=== PATIENT | female | born 1990 | race Two or more races ===

== ENCOUNTER 2016-08-27 08:47 | Emergency (ER) | payer BC ==
[~2016-08-27] VITALS: Ht 165.1 cm; Wt 65.8 kg
[2016-08-27 09:03] VITALS: BP 124/62
== END 2016-08-27 09:17 | disposition home or self-care (01) ==
LOC: ER 08:49
DX: H92.01 Otalgia, right ear (principal); H73.011 Bullous myringitis, right ear; F17.210 Nicotine dependence, cigarettes, uncomplicated
CPT/HCPCS: 99282; A4606; Z7610